=== PATIENT | male | born 1985 | race Caucasian/White ===

== ENCOUNTER 2021-11-30 15:07 | Emergency (ER) | payer MEDICAID ==
[2021-11-30] MEDS ORDERED: MVI, Adult with Vitamin K 10 ML, Thiamine 200 MG, Zinc/Copper/Manganese/Selenium 1 ML i... IV ONE ×8 (16:18→16:45)
[2021-11-30] MEDS ORDERED: Pantoprazole 40 MG Vial IVPUSH ONE (16:19)
[2021-11-30] MEDS ORDERED: Ondansetron 4 MG Tab.DIS PO ONE (16:20)
== END 2021-11-30 19:07 | disposition home or self-care (01) ==
LOC: JP.ED 15:07
DX: K85.20 Alcohol induced acute pancreatitis without necrosis or infection (principal); Z88.1 Allergy status to other antibiotic agents; Z72.0 Tobacco use
CPT/HCPCS: 36415; 80053; 83690; 85025; 96365; 96366; 96375; 99284; A9270; C9113; J3411; J7120

== ENCOUNTER 2021-12-29 09:04 | Emergency (ER) | payer MEDICAID ==
[2021-12-29] MEDS ORDERED: MVI, Adult with Vitamin K 10 ML, Thiamine 200 MG, Folic Acid 1 MG, Magnesium Sulfate 2 ... IV ONE ×5 (09:25)
[2021-12-29] MEDS: Pantoprazole 40 MG Vial IVPUSH ONE (09:39)
[2021-12-29] MEDS: Ondansetron 4 MG/2 ML SDV IVPUSH ONE (09:41)
[2021-12-29] MEDS: MVI, Adult with Vitamin K 10 ML, Thiamine 200 MG, Folic Acid 1 MG, Magnesium Sulfate 2 ... IV ONE ×5 (09:52)
[2021-12-29] MEDS: Metoclopramide 10 MG/2 ML SDV IVPUSH ONE (10:09)
[2021-12-29] MEDS: fentaNYL 100 MCG/2 ML SDV IVPUSH ONE ×2 (10:36→17:43)
[2021-12-29 12:01] LABS: CORONAVIRUS COVID-19 NAA NEGATIVE (NEGATIVE)
[2021-12-29] MEDS: Nicotine 21 MG/24 Hr Patch TRDERM ONE (16:52)
== END 2021-12-29 17:50 | disposition critical access hospital (66) ==
LOC: JP.ED 09:04
DX: K85.20 Alcohol induced acute pancreatitis without necrosis or infection (principal); E86.0 Dehydration; F10.230 Alcohol dependence with withdrawal, uncomplicated; R19.7 Diarrhea, unspecified; R11.2 Nausea with vomiting, unspecified; Z88.1 Allergy status to other antibiotic agents; Z72.0 Tobacco use; Z20.822 Contact with and (suspected) exposure to COVID-19
CPT/HCPCS: 0241U; 36415; 80048; 80076; 83690; 83735; 85025; 96365; 96366; 96375; 96376; 99285; A9270; C9113; J2405; J2765; J3010; J3360; J3411; J3475; J7121; J3490

== ENCOUNTER 2022-10-27 09:54 | Emergency (ER) | payer MEDICAID | END 2022-10-27 12:10 | disposition left against medical advice (07) | LOC: JP.ED 09:54 | DX: F10.129 Alcohol abuse with intoxication, unspecified (principal); Z88.1 Allergy status to other antibiotic agents; Z79.899 Other long term (current) drug therapy | CPT/HCPCS: 36415; 80048; 80305-QW; 80307; 85025; 99284 ==

== ENCOUNTER 2022-10-29 13:37 | Emergency (ER) | payer MEDICAID | END 2022-10-29 16:13 | disposition home or self-care (01) | LOC: JP.ED 13:37 | DX: T15.91XA Foreign body on external eye, part unspecified, right eye, initial encounter (principal); T15.92XA Foreign body on external eye, part unspecified, left eye, initial encounter; Z79.899 Other long term (current) drug therapy; Z88.1 Allergy status to other antibiotic agents; Z87.891 Personal history of nicotine dependence | CPT/HCPCS: 99283 ==